=== PATIENT | male | born 1995 | race African-American/Black ===

== ENCOUNTER 2020-10-01 20:28 | Emergency (ER) | payer OTHER ==
[~2020-10-01] VITALS: Ht 167.6 cm; Wt 70.4 kg
--- NOTE | 2020-10-01 21:02 | PHYS DOC ---
Past Medical History Past Medical History: Other Additional Past Medical Histor: HIV Past Surgical History: No Surgical History Smoking Status: Current Every Day Smoker Alcohol Use: Occasionally General Adult EDM: Chief Complaint: SUBSTANCE ABUSE HPI: HPI: Patient is a 25 year old male with history of drug abuse who presents to the ED today stating he smoked meth earlier today then sniffed it this evening as well as used marijuana, he states his heart started racing and he became anxious. He called 911 and was brought to the ED. Patient has been on his phone for quite some time. We have tried to ask him to get off the phone but he will not. Review of Systems: Review of Systems: Constitutional: Denies fever or chills. [] Eyes: Denies change in visual acuity. [] HENT: Denies nasal congestion or sore throat. [] Respiratory: Denies cough or shortness of breath. [] Cardiovascular: Reports tachycardia : Denies dysuria. [] Musculoskeletal: Denies back pain or joint pain. [] Integument: Denies rash. [] Neurologic: Denies headache, focal weakness or sensory changes. [] Psychiatric: Reports using methamphetamine and marijuana] Heart Score: Risk Factors: Risk Factors: DM, Current or recent (<one month) smoker, HTN, HLP, family history of CAD, obesity. Risk Scores: Score 0 - 3: 2.5% MACE over next 6 weeks - Discharge Home Score 4 - 6: 20.3% MACE over next 6 weeks - Admit for Clinical Observation Score 7 - 10: 72.7% MACE over next 6 weeks - Early Invasive Strategies Allergies: Allergies: Allergies Coded Allergies Type Severity Reaction Last Updated Verified Sulfa (Sulfonamide Antibiotics) Allergy Unknown 10/01/20 Yes Physical Exam: PE: Constitutional: Well developed, well nourished, no acute distress, non-toxic appearance. [] HENT: Normocephalic, atraumatic, bilateral external ears normal, oropharynx moist, no oral exudates, nose normal. [] Eyes: PERRLA, EOMI, conjunctiva normal, no discharge. [] Neck: Normal range of motion, no tenderness, supple, no stridor. [] Cardiovascular: Tachycardic Lungs & Thorax: Bilateral breath sounds clear to auscultation [] Abdomen: Bowel sounds normal, soft, no tenderness, no masses, no pulsatile masses. [] Skin: Warm, dry, no erythema, no rash. [] Back: No tenderness, no CVA tenderness. [] Extremities: No tenderness, no cyanosis, no clubbing, ROM intact, no edema. [] Neurologic: Alert and oriented X 3, normal motor function, normal sensory function, no focal deficits noted. [] Psychologic: Appears anxious, on the phone quite a bit Current Patient Data: Vital Signs: Vital Signs Date Time Temp Pulse Resp B/P (MAP) Pulse Ox O2 Delivery O2 Flow Rate FiO2 10/01/20 20:42 98.0 124 24 168/85 (112) 100 NonRebreather Mask 98.0 EKG: EKG: [] Radiology/Procedures: Radiology/Procedures: [] Course & Med Decision Making: Course & Med Decision Making Pertinent Labs and Imaging studies reviewed. (See chart for details) This is a 25-year-old male patient presenting to the ED today complaining of his heart racing as well as anxiety after smoking and sniffing methamphetamine. Patient's heart rate has been in the 115-120s when I walked into the room. He has been on the phone since he came to the ED. We have tried to encourage him to get off the phone so we can address his symptoms but he continues to be on the phone. We were able to give him a liter of fluid other than that patient has been on the phone quite a bit. He is soft it does come down to 83 with blood pressure in the 140s over 60s. He was discharged to home. He will provided a advised to. Offered rehab, he stated he does not want to go to rehab. In fact he states he has been doing methamphetamine for 1 year and does not need help. Dragon Disclaimer: Dragmario Disclaimer: This electronic medical record was generated, in whole or in part, using a voice recognition dictation system. Departure Departure Impression: Primary Impression: Methamphetamine use Additional Impressions: Marijuana use Tachycardia Disposition: 01 DC HOME SELF CARE/HOMELESS Condition: STABLE Patient Instructions: Drug Abuse, FAQs Additional Instructions: You were evaluated in the emergency room, consider getting help for drug use. [facility] is available and offers this service RONNA NGUYỄN APRN Oct 01, 2020 21:02
[2020-10-01] MEDS ORDERED: IV NORMAL SALINE 1000ML BAG 1,000 ML IV ONE (21:30)
[2020-10-01 22:37] LABS: BARBITURATES NEG (NEG); BENZODIAZEPINES NEG (NEG); CANNABINOIDS POS (NEG); COCAINE NEG (NEG); METHADONE NEG (NEG); OPIATES NEG (NEG); PHENCYCLIDINE NEG (NEG)
[2020-10-01 22:43] LABS: AMPHETAMINE/METHAMPHETAMINE POS (NEG)
[2020-10-01 22:45] VITALS: BP 142/78
== END 2020-10-01 23:05 | disposition home or self-care (01) ==
LOC: ER 20:28
DX: F15.10 Other stimulant abuse, uncomplicated (principal); F12.10 Cannabis abuse, uncomplicated; R00.0 Tachycardia, unspecified; F41.9 Anxiety disorder, unspecified; F17.200 Nicotine dependence, unspecified, uncomplicated; Z88.2 Allergy status to sulfonamides
CPT/HCPCS: 80307; 96360; 96361; 99283; J7030